=== PATIENT | female | born 1955 | race Caucasian/White ===

== ENCOUNTER → 2017-01-14 | Outpatient (CLI) | payer BC | LOC: BMCIMAGING 07:49 | PROVIDERS: ATTEND Family Medicine | DX: Z12.31 Encounter for screening mammogram for malignant neoplasm of breast (principal); R92.8 Other abnormal and inconclusive findings on diagnostic imaging of breast | CPT/HCPCS: G0202 ==

== ENCOUNTER → 2017-01-26 | Outpatient (CLI) | payer BC | LOC: BMCIMAGING 10:04 | PROVIDERS: ATTEND Family Medicine | DX: R92.8 Other abnormal and inconclusive findings on diagnostic imaging of breast (principal) | CPT/HCPCS: G0206 ==

== ENCOUNTER → 2017-06-30 | Outpatient (CLI) | payer OTHER | LOC: BMCIMAGING 08:49 | PROVIDERS: ATTEND Emergency Medicine | DX: M79.89 Other specified soft tissue disorders (principal); M77.32 Calcaneal spur, left foot; M19.072 Primary osteoarthritis, left ankle and foot ==

== ENCOUNTER → 2018-01-27 | Outpatient (CLI) | payer OTHER | LOC: BMCIMAGING 07:54 | PROVIDERS: ATTEND Family Medicine | DX: Z12.31 Encounter for screening mammogram for malignant neoplasm of breast (principal) ==